=== PATIENT | female | born 1995 | race African-American/Black ===

== ENCOUNTER 2017-08-29 01:45 | Emergency (ER) | payer SELFPAY ==
[~2017-08-29] VITALS: Ht 160 cm; Wt 78.8 kg
[2017-08-29 01:50] VITALS: BP 115/73; PULSE 100; RESP 17; TEMP 98.9
== END 2017-08-29 02:01 | disposition left against medical advice (07) ==
LOC: PHED 01:45
DX: T54.91XA Toxic effect of unspecified corrosive substance, accidental (unintentional), initial encounter (principal)
CPT/HCPCS: 99281